=== PATIENT | female | born 1970 | race Caucasian/White ===

== ENCOUNTER 2018-12-22 08:30 | Day surgery (SDC) | payer MEDICARE, MEDICAID ==
[2018-12-21 09:55] VITALS: BMI 19.5
[2018-12-22] MEDS ORDERED: SUGAMMADEX SODIUM 500 MG/5 ML VIAL ONE (09:53)
[2018-12-22] MEDS ORDERED: Dexamethasone 20 MG/5 ML VIAL ONE (12:33)
[2018-12-22] MEDS ORDERED: Ondansetron PF 4 MG/2 ML Vial ONE (12:33)
[2018-12-22] MEDS ORDERED: Rocuronium Bromide 10 MG/ML (10ML VIAL) ONE (12:33)
[2018-12-22] MEDS ORDERED: Lidocaine 1% PF 5 ML VIAL ONE (12:33)
[2018-12-22] MEDS ORDERED: PROPOFOL 200 MG/20 ML VIAL ONE (12:33)
--- NOTE | 2018-12-22 12:59 | OP ---
DATE OF PROCEDURE: 12/22/2018 TECHNICAL REP SURGEON: None. PROCEDURE PERFORMED: Esophagogastroduodenoscopy, diagnostic. INDICATIONS: 1. Hiatal hernia. 2. Gastroesophageal reflux. 3. 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 MEDICATIONS: See Anesthesia record. FINDINGS: After discussion of the risks, benefits, and alternatives of the procedure, informed consent was obtained and witnessed. Pre-endoscopic cardiopulmonary examination was satisfactory. Time-out was performed before sedation was achieved. Sedation was achieved with Anesthesia assistance in the endoscopy unit. The patient was endotracheally intubated and sedated with general anesthesia. A Pentax adult upper endoscope was placed into the oropharynx and passed through the cricopharyngeus under direct visualization. The esophageal mucosa appeared normal throughout with a normal-appearing Z-line at 38 cm. There was no evidence of Loaiza esophagus or active esophagitis. The endoscope was advanced into the stomach. Forward and retroflexed views of the entire gastric mucosa were obtained. The gastric mucosa appeared normal throughout. The patient does have a 3 to 4 cm hiatal hernia. The endoscope was advanced through the pylorus and into the first and second portions of the duodenum, which appeared normal. The upper endoscope was completely withdrawn, and the patient allowed to recover. The patient tolerated the procedure well. There were no immediate postprocedure complications. IMPRESSION: 1. Normal esophagus, with regular Z-line at 38 cm from the incisors. 2. 3 to 4 cm hiatal hernia. 3. Otherwise normal esophagogastroduodenoscopy. RECOMMENDATIONS: 1. Elevate the head of the bed. 2. Continue with PPI therapy. 3. The patient has a surgical appointment coming up next week. 4. Follow up in the GI clinic as needed. 5. I see no evidence of reflux esophagitis or Loaiza esophagus. I cannot rule out the possibility that the patient does indeed have psychogenic rumination syndrome, and the possibility that her lung disease is unrelated to this. I would not expect hiatal hernia repair surgery to impact rumination syndrome. Job ID: [id number]
== END 2018-12-22 11:59 | disposition home or self-care (01) ==
LOC: SDC 08:30
PROVIDERS: ATTEND Internal Medicine
PROC: 0DJ08ZZ Inspection of Upper Intestinal Tract, Via Natural or Artificial Opening Endoscopic (ICD-10-PCS; principal; 2018-12-22)
DX: K44.9 Diaphragmatic hernia without obstruction or gangrene (principal); K21.9 Gastro-esophageal reflux disease without esophagitis; Z79.899 Other long term (current) drug therapy; Z88.0 Allergy status to penicillin; Z88.7 Allergy status to serum and vaccine; Z88.8 Allergy status to other drugs, medicaments and biological substances; Z91.010 Allergy to peanuts; Z91.012 Allergy to eggs; Z91.018 Allergy to other foods; Z91.048 Other nonmedicinal substance allergy status